=== PATIENT | male | born 1995 | race African-American/Black ===

== ENCOUNTER → 2022-07-31 | Outpatient (CLI) | payer OTHER ==
[2022-07-31 10:30] LABS: PLATELET COUNT 246 K/uL (142-355)
[2022-07-31 10:44] LABS: POTASSIUM 3.9 mmol/L (3.6-5.2)
== END ==
LOC: LABW 09:43
PROVIDERS: ATTEND Family Medicine
DX: R00.2 Palpitations (principal); R51.9 Headache, unspecified
CPT/HCPCS: 36415; 80053; 80061; 81002; 84439; 84443; 85027; 93005